=== PATIENT | male | born 1940 | race Caucasian/White ===

== ENCOUNTER 2018-08-23 09:04 | Outpatient (CLI) | payer MEDICARE, BC ==
[~2018-08-23 09:04] MED LIST: Gadobenate Dimeglumine 529 MG/1 ML (20ML VIAL) ONE
--- NOTE | 2018-08-23 11:28 | MRI ---
MRI BRAIN WITH AND WITHOUT IV CONTRAST: Date: 08/23/18 HISTORY: Memory loss. Encephalopathy. FINDINGS: No evidence of infarct, hemorrhage, mass, midline shift, or abnormal extra-axial fluid collections ar e seen. No abnormal postcontrast enhancement is noted. No restricted diffusion identified. There are multiple foci of T2 prolongation in the periventricular white matter consistent with chronic small ve ssel ischemic disease. There is ventricular sulcal prominence due to cortical atrophy. The ventricula r size is appropriate and the basilar cisterns are patent. There is mucosal disease in the paranasal sinuses. IMPRESSION: 1. Cortical atrophy. 2. Chronic small vessel ischemic disease. 3. No evidence of acute intracranial process or mass. POS: [facility]
== END 2018-08-23 09:05 | disposition home or self-care (01) ==
LOC: SCSMRI 09:04
PROVIDERS: ATTEND Psychiatry & Neurology Neurology
DX: G93.40 Encephalopathy, unspecified (principal); I67.82 Cerebral ischemia; G31.9 Degenerative disease of nervous system, unspecified
CPT/HCPCS: 70553; 82565; A9579

== ENCOUNTER 2022-12-13 10:52 | Outpatient (CLI) | payer MEDICARE, BC | END 2022-12-13 10:53 | disposition home or self-care (01) | LOC: PET 10:52 | PROVIDERS: ATTEND Psychiatry & Neurology Neurology | DX: G30.9 Alzheimer's disease, unspecified (principal); F02.80 Dementia in other diseases classified elsewhere, unspecified severity, without behavioral disturbance, psychotic disturbance, mood disturbance, and anxiety | CPT/HCPCS: 70551; 78803; A9552 ==

== ENCOUNTER 2023-12-15 14:51 | Outpatient (CLI) | payer MEDICARE, BC ==
[2023-12-15 15:54] LABS: Hematocrit 41.9 % (38.8-50.0); Hemoglobin 14.2 g/dL (13.5-17.5); Mean Corpuscular HGB CONC 33.9 g/dL (32.0-36.0); Mean Corpuscular Hemoglobin 30.1 pg (27.0-33.0); Mean Corpuscular Volume 88.8 fl (81.2-95.1); Platelet Count 311 10x3/uL (150-450); RBC Distribution Width 12.9 % (11.5-14.5); Red Blood Cell (RBC) Count 4.72 10x6/uL (4.32-5.72); White Blood Cell (WBC) Count 7.2 10x3/uL (3.5-10.5)
[2023-12-15 15:59] LABS: INR-International Normal Ratio 0.9; PTT 27.7 sec (22.0-33.0); Prothrombin Time 10.2 sec (9.5-12.1)
[2023-12-15 16:00] LABS: Anion Gap 13 mmol/L (10-20); BUN (Urea Nitrogen) 15 mg/dL (8.4-25.7); Calc. Creatinine Clearance 0 mL/min (70-130); Calcium 9.3 mg/dL (7.8-10.44); Carbon Dioxide 27 mmol/L (23-31); Chloride 103 mmol/L (98-107); Estimated GFR 67; Glucose 83 mg/dL (83-110); Potassium 4.3 mmol/L (3.5-5.1); Sodium 139 mmol/L (136-145)
== END 2023-12-15 14:52 | disposition home or self-care (01) ==
LOC: LABBT 14:51
PROVIDERS: ATTEND Urology
DX: Z01.812 Encounter for preprocedural laboratory examination (principal); R33.9 Retention of urine, unspecified
CPT/HCPCS: 80048; 85027; 85610; 85730

== ENCOUNTER 2023-12-18 06:36 | Inpatient (IN) | payer BC, MEDICARE ==
[2023-12-18] MEDS ORDERED: PROPOFOL 20 ML ONE (08:01)
[2023-12-18] MEDS ORDERED: fentaNYL PF 100 MCG/2 ML SYRINGE ONE (08:02)
[2023-12-18] MEDS ORDERED: Lidocaine 4% Topical Sol 50 ML BOT ONE (08:26)
[2023-12-18] MEDS ORDERED: Iopamidol 15 ML ONE ×2 (08:27→12:42)
[2023-12-18] MEDS ORDERED: cefTRIAXone (ROCEPHIN) 2 GM VIAL ONE (08:33)
[2023-12-18] MEDS ORDERED: Sodium Chloride 0.9% 100 ML ONE (08:33)
[2023-12-18] MEDS ORDERED: ePHEDrine Sulfate 50 MG/10 ML VIAL ONE (09:01)
[2023-12-18] MEDS ORDERED: Rocuronium Bromide 10 MG/ML (10ML VIAL) ONE (09:53)
[2023-12-18] MEDS ORDERED: fentaNYL 50 mcg/mL 1 mL Vial ONE (10:03)
[2023-12-18] MEDS ORDERED: Ketorolac Tromethamine 30 MG (1 mL) VIAL ONE (10:06)
[2023-12-18] MEDS ORDERED: Dexamethasone 4 mg/ml Vial ONE (10:06)
[2023-12-18] MEDS ORDERED: Ondansetron PF 4 MG/2 ML Vial ONE (10:06)
[2023-12-18] MEDS ORDERED: PHENYLEPHRINE-NS 100 MCG/ML 10 ML SYRINGE ONE (10:31)
[2023-12-18] MEDS ORDERED: SUGAMMADEX SODIUM 200 MG/2 ML VIAL ONE (10:56)
[2023-12-18] MEDS ORDERED: Hyoscyamine SL 0.125 MG TAB SL PRN (11:08)
[2023-12-18] MEDS ORDERED: Acetaminophen 500 MG TAB PO PRN (11:08)
[2023-12-18] MEDS ORDERED: LevoFLOXacin 500 mg/D5W 500 MG in Premix 1 BAG IVPB SCH (11:15)
[2023-12-18] MEDS ORDERED: D5 1/2 NS w/20 mEq KCL 1,000 ML ONE (12:20)
[2023-12-18] MEDS: D5 1/2 NS w/20 mEq KCL 1,000 ML IV SCH ×2 (15:48→19:28)
[2023-12-18] MEDS: Docusate 100 MG CAP PO SCH (19:28)
[2023-12-19] MEDS: D5 1/2 NS w/20 mEq KCL 1,000 ML IV SCH ×2 (07:27→17:08)
[2023-12-19] MEDS: cefTRIAXone\\ROCEPHIN 1 GM in Sodium Chloride 0.9% 100 ML IVPB SCH (08:07)
[2023-12-19] MEDS: Docusate 100 MG CAP PO SCH ×2 (08:14→20:50)
[2023-12-19] MEDS ORDERED: Non-Formulary Item 1 EACH (Calcium Carb, Citrate/Vit D3 [Calcium + D3 Er Tablet] 1 TABLET PO SCH (09:00)
[2023-12-19] MEDS ORDERED: Calcium Carbonate 600 MG + Vit D TAB PO SCH (09:00)
[2023-12-19 15:16] VITALS: BMI 19.4
[2023-12-20] MEDS: D5 1/2 NS w/20 mEq KCL 1,000 ML IV SCH (05:30)
[2023-12-20 08:37] VITALS: BP 164/72; TEMP 97.5
[2023-12-20] MEDS: cefTRIAXone\\ROCEPHIN 1 GM in Sodium Chloride 0.9% 100 ML IVPB SCH (09:05)
[2023-12-20] MEDS: Docusate 100 MG CAP PO SCH (09:06)
== END 2023-12-20 12:54 | disposition home or self-care (01) | DRG 713 ==
LOC: SDC 06:36 → SURG A 11:08
PROVIDERS: ADMIT Urology; ATTEND Urology
PROC: 0VB08ZZ Excision of Prostate, Via Natural or Artificial Opening Endoscopic (ICD-10-PCS; principal; 2023-12-18)
DX: N40.1 Benign prostatic hyperplasia with lower urinary tract symptoms (principal); N13.8 Other obstructive and reflux uropathy; R33.8 Other retention of urine; Z88.8 Allergy status to other drugs, medicaments and biological substances; E78.00 Pure hypercholesterolemia, unspecified; F03.90 Unspecified dementia, unspecified severity, without behavioral disturbance, psychotic disturbance, mood disturbance, and anxiety
CPT/HCPCS: 88305; J0696; J1100; J1885; J2405; J2704; J3010; J3480; J3490; Q9967